=== PATIENT | female | born 1960 | race Caucasian/White ===

== ENCOUNTER 2020-06-22 22:19 | Emergency (ER) | payer OTHER ==
[~2020-06-22] VITALS: Ht 157.5 cm; Wt 63.6 kg
[2020-06-22] MEDS ORDERED: METF-961 PO (22:38)
[2020-06-22 22:39] LABS: GLUCOSE,POINT OF CARE 106 MG/DL (70-110)
[2020-06-23] MEDS ORDERED: BACITRACIN 0.9 GM PACKET OINTMENT TP ONE
[2020-06-23] MEDS ORDERED: PERTUSS(ACELL),DIPH,TET VAC/PF 0.5 ML VIAL IM ONE (00:15)
[2020-06-23 01:53] VITALS: BP 150/88
== END 2020-06-23 02:58 | disposition home or self-care (01) ==
LOC: EMS 22:22
DX: S63.124A Dislocation of interphalangeal joint of right thumb, initial encounter (principal); S01.01XA Laceration without foreign body of scalp, initial encounter; I10 Essential (primary) hypertension; E11.9 Type 2 diabetes mellitus without complications; Z88.6 Allergy status to analgesic agent; Z79.82 Long term (current) use of aspirin; W18.39XA Other fall on same level, initial encounter; Y93.89 Activity, other specified; Y92.89 Other specified places as the place of occurrence of the external cause; Y99.8 Other external cause status
CPT/HCPCS: 12002; 26770; 70450; 72125; 90471; 90715

== ENCOUNTER 2020-06-30 11:17 | Emergency (ER) | payer OTHER ==
[~2020-06-30] VITALS: Ht 154.9 cm; Wt 63.6 kg
[~2020-06-30 11:17] MED LIST: METF-961 PO
[2020-06-30] MEDS ORDERED: LINA5TAB PO (11:24)
[2020-06-30 12:56] VITALS: BP 135/82
== END 2020-06-30 12:56 | disposition home or self-care (01) ==
LOC: EMS 11:32
DX: S01.01XD Laceration without foreign body of scalp, subsequent encounter (principal); E11.9 Type 2 diabetes mellitus without complications; I10 Essential (primary) hypertension; X58.XXXD Exposure to other specified factors, subsequent encounter
CPT/HCPCS: Z7502